=== PATIENT | male | born 1985 | race African-American/Black ===

== ENCOUNTER 2020-05-23 23:20 | Inpatient (IN) | payer OTHER, SELFPAY ==
[2020-05-24] VITALS: BP 159/81; PULSE 88; RESP 16; TEMP 36.6; O2SAT 100
--- NOTE | 2020-05-24 | XR_ITS ---
EXAMINATION: XR ABDOMEN KUB CLINICAL INDICATION: Abdominal pain. COMPARISON: None TECHNIQUE: AP view of the abdomen. FINDINGS: There is scattered oral contrast and stool seen throughout the colon without distention. There is no organomegaly. No radiopaque calculi. No gross bony abnormality visualized. XR/XR KUB IMPRESSION: Nonspecific bowel gas pattern. There is oral contrast in the colon likely from recent GI exam.
--- NOTE | 2020-05-24 | ECG_ITS ---
Test Reason : check QT Blood Pressure : / mmHG Vent. Rate : 100 BPM Atrial Rate : 100 BPM P-R Int : 124 ms QRS Dur : 080 ms QT Int : 332 ms P-R-T Axes : 062 065 003 degrees QTc Int : 428 ms Normal sinus rhythm Nonspecific T wave abnormality Abnormal ECG No previous ECGs available Referred By: Carlota Du Electronically Signed By:CUATE LEI
--- NOTE | 2020-05-24 | XR_ITS ---
EXAMINATION: XR ABDOMEN KUB CLINICAL INDICATION: Nausea, vomiting COMPARISON: None TECHNIQUE: AP view of the abdomen. FINDINGS: High density material is seen throughout the colon, question prior contrast administration. No prior studies available for comparison however. There is a nonobstructed abdominal bowel gas pattern with gas seen within the stomach, small bowel, and colon as far distally as the rectum. No abnormal abdominal calcifications. No acute osseous abnormality. There is osseous hypertrophy of the femoral head-neck junctions bilaterally. XR/XR KUB IMPRESSION: Nonobstructive abdominal bowel gas pattern. There is high density material throughout the colon, query prior contrast administration. No prior studies are available for comparison on the PACS system.
[2020-05-24 00:33] VITALS: BMI 35.4
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
[2020-05-24 06:05] VITALS: BP 140/84; PULSE 84; RESP 18; TEMP 36.6; O2SAT 98
[2020-05-24] MEDS: Famotidine 20 MG TABLET PO (08:26)
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
[2020-05-24] MEDS: Metoclopramide HCl 10 MG/2 ML VIAL 5 MG IM ×2 (13:09→21:22)
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
[2020-05-24] MEDS: hydrOXYzine HCL 25 MG TABLET 50 MG PO (14:36)
[2020-05-24 18:00] VITALS: BP 135/82; PULSE 96; TEMP 528.3; TEMP 983
[2020-05-24] MEDS: Promethazine HCL 25 MG TABLET PO (19:30)
[2020-05-24 21:39] VITALS: BP 147/75; PULSE 70
[2020-05-24] MEDS: Melatonin 3 MG TABLET 6 MG PO (21:48)
[2020-05-24] MEDS: LORazepam 2 MG/ML VIAL 1 MG IM (22:06)
[2020-05-24 22:10] LABS: MANUAL DIFF FLAG NO
[2020-05-24 22:13] LABS: Basophils Percent Auto 0.4 % (0-2); Eosinophils Percent Auto 0.4 % (0-4); Hematocrit 40.7 % (42-52); Hemoglobin 12.8 g/dl (14.0-18.0); Imm Gran Abs Auto 0.02 X10*3/uL (0.00-0.03); Imm Gran Pct Auto 0.2 % (0.0-0.4); Lymphocytes Absolute Auto 2.1 X10*3/uL (1.2-4.9); Lymphocytes Percent Auto 22.3 % (20-40); Mean Corpuscular HGB Conc 31.4 g/dl (31.0-36.0); Mean Corpuscular Hemoglobin 28.8 pg (27.0-33.0); Mean Corpuscular Volume 91.5 fL (80-98); Mean Platelet Volume 8.5 fL (9.4-12.4); Monocytes Absolute Auto 0.5 X10*3/uL (0.1-1.2); Monocytes Percent Auto 5.4 % (2-11); Neutrophils Absolute Auto 6.6 X10*3/uL (2.0-8.3); Neutrophils Percent Auto 71.3 % (45-73); Platelet Count 310 X10*3/uL (160-400); Red Blood Count 4.45 X10*6/uL (4.60-5.80); Red Cell Distribution Width 13.3 % (11.0-16.0); White Blood Count 9.2 X10*3/uL (4.8-10.8)
[2020-05-24 22:34] LABS: Alanine Aminotransferase 11 U/L (0-40); Albumin Level 4.3 g/dL (3.5-5.0); Alkaline Phosphatase 47 U/L (39-117); Anion Gap 12 (12-20); Aspartate Amino Transferase 13 U/L (5-37); Bilirubin Total 0.6 mg/dL (0.0-1.0); Blood Urea Nitrogen 8 mg/dL (9-16); Calcium 9.5 mg/dL (8.4-10.2); Carbon Dioxide 29 mmol/L (22-29); Chloride 101 mmol/L (96-108); Creatinine Clr Calc Pharmacy 99.1; Estimated Glomerular Filt Rate > 60; Glucose Random 114 mg/dL (60-115); Potassium 4.2 mmol/l (3.3-5.1); Sodium 138 mmol/L (135-145); Total Protein 7.2 g/dL (6.5-8.0)
[2020-05-25 06:05] VITALS: BP 135/80; PULSE 70; RESP 18; TEMP 36.7; O2SAT 99
[2020-05-25 07:57] LABS: MANUAL DIFF FLAG NO
[2020-05-25 08:13] LABS: Basophils Percent Auto 0.4 % (0-2); Eosinophils Absolute Auto 0.1 X10*3/uL (0.0-0.4); Eosinophils Percent Auto 1.1 % (0-4); Hematocrit 40.1 % (42-52); Hemoglobin 12.9 g/dl (14.0-18.0); Imm Gran Abs Auto 0.03 X10*3/uL (0.00-0.03); Imm Gran Pct Auto 0.4 % (0.0-0.4); Lymphocytes Absolute Auto 2.6 X10*3/uL (1.2-4.9); Lymphocytes Percent Auto 31.5 % (20-40); Mean Corpuscular HGB Conc 32.2 g/dl (31.0-36.0); Mean Corpuscular Hemoglobin 29.5 pg (27.0-33.0); Mean Corpuscular Volume 91.6 fL (80-98); Mean Platelet Volume 8.9 fL (9.4-12.4); Monocytes Absolute Auto 0.5 X10*3/uL (0.1-1.2); Monocytes Percent Auto 6.4 % (2-11); Neutrophils Absolute Auto 5.1 X10*3/uL (2.0-8.3); Neutrophils Percent Auto 60.2 % (45-73); Platelet Count 315 X10*3/uL (160-400); Red Blood Count 4.38 X10*6/uL (4.60-5.80); Red Cell Distribution Width 13.3 % (11.0-16.0); White Blood Count 8.4 X10*3/uL (4.8-10.8)
[2020-05-25 08:31] LABS: Alanine Aminotransferase 11 U/L (0-40); Alkaline Phosphatase 45 U/L (39-117); Anion Gap 11 (12-20); Aspartate Amino Transferase 15 U/L (5-37); Bilirubin Total 0.8 mg/dL (0.0-1.0); Blood Urea Nitrogen 9 mg/dL (9-16); Calcium 9.3 mg/dL (8.4-10.2); Carbon Dioxide 30 mmol/L (22-29); Chloride 103 mmol/L (96-108); Cholesterol 131 mg/dL; Creatinine Clr Calc Pharmacy 93.3; Estimated Glomerular Filt Rate > 60; Glucose Fasting 98 mg/dL (60-99); HDL Cholesterol 32 mg/dL; LDL Cholesterol Calculated 77 mg/dl; Potassium 4.5 mmol/l (3.3-5.1); Sodium 139 mmol/L (135-145); Total Protein 6.8 g/dL (6.5-8.0); Triglycerides 112 mg/dL
[2020-05-25] MEDS: Promethazine HCL 25 MG TABLET PO ×4 (08:45→21:31)
[2020-05-25] MEDS: Sertraline HCL 50 MG TABLET PO (08:45)
[2020-05-25 08:50] LABS: Thyroid Stimulating Hormone 1.53 uIU/mL (0.32-4.0)
[2020-05-25] MEDS: Metoclopramide HCl 10 MG/2 ML VIAL 5 MG IM (09:09)
[2020-05-25] MEDS: Metoclopramide HCl 10 MG/2 ML VIAL IM ×3 (13:16→21:17)
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
[2020-05-25 17:40] VITALS: BP 139/67; PULSE 76; TEMP 36.7
[2020-05-25] MEDS: Melatonin 3 MG TABLET 6 MG PO (21:32)
[2020-05-25 21:35] VITALS: BP 118/87; PULSE 94; TEMP 36.7
[2020-05-26] MEDS: Promethazine HCL 25 MG TABLET PO ×3 (01:27→18:26)
[2020-05-26 03:53] LABS: Estimated Average Glucose 88 mg/dL; Hemoglobin A1c % 4.7 %
[2020-05-26 04:38] LABS: Folate 14.1 ng/mL (> or = 4.0); Vitamin B12 478 pg/mL (200-900)
[2020-05-26 06:15] VITALS: BP 128/68; PULSE 92; RESP 18; TEMP 36.6; O2SAT 98
[2020-05-26] MEDS: Sertraline HCL 50 MG TABLET PO (09:12)
[2020-05-26] MEDS: Metoclopramide HCl 10 MG/2 ML VIAL IM ×3 (13:27→21:42)
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
[2020-05-26 18:00] VITALS: BP 169/95; PULSE 97; TEMP 36.9
[2020-05-26 20:45] VITALS: BP 133/87; PULSE 97; TEMP 36.9
[2020-05-27 06:15] VITALS: BP 151/93; PULSE 95; RESP 18; TEMP 36.7; O2SAT 98
[2020-05-27] MEDS: Sertraline HCL 50 MG TABLET PO (08:55)
[2020-05-27] MEDS: Promethazine HCL 25 MG TABLET PO ×3 (09:10→18:51)
--- NOTE | 2020-05-27 11:00 | PC.NURSE ---
Pt is a smoker but declines NRT.
[2020-05-27] MEDS: hydrOXYzine HCL 25 MG TABLET 50 MG PO ×2 (11:38→18:51)
[2020-05-27] MEDS: Omeprazole 20 MG CAPSULE.DR PO (12:24)
[2020-05-27] MEDS: Metoclopramide HCl 10 MG/2 ML VIAL IM ×2 (15:15→20:11)
--- NOTE | 2020-05-27 16:41 | HO.PSYCHPN ---
Subjective Subjective Date of Service: 05/29/20 Reason For Visit: Major Depressive Disorder Interim History: Pt reports improvement in mood in that he is no longer suicidal or homicidal. He identifies his children as protective factors. He can't explain much as to why he is feeling better. He reports sleeping well. Vomiting has decreased. He reports hx of stomach ulcer. [facility] Review of Systems Review of Systems Yes all other systems are reviewed and are negative Constitutional: Denies chills and Denies fever(s) Cardiovascular: Denies chest pain Respiratory: Denies cough Gastrointestinal: Reports constipation, Denies diarrhea, Reports nausea and Reports vomiting Mental Status Exam Mental Status Exam Narrative: Appearance: appears stated age, disheveled, in distress due to vomiting and abdominal pain Behavior: superficially cooperative Speech: clear, normal rate/rhythm/volume, spontaneous TP: linear TC: no signs of psychosis, feeling slightly more positive about his life Mood: depressed Affect: in pain and discomfort due to pain AH/VH: none Delusions: none Insight/judgment: poor x 2. Memory/cog: alert, oriented x 3. grossly intact to conversational testing Diagnostics Vital Signs (24Hr): Vital Signs - 24 hr 05/26/20 18:00 05/26/20 20:45 05/27/20 06:15 Temperature 98.4 F 98.4 F 98.1 F Pulse Rate 97 97 95 Respiratory Rate 18 Blood Pressure 169/95 H 133/87 151/93 H Pulse Oximetry 98 Body Mass Index 35.4 Labs Results: 05/25/20 07:47 05/25/20 07:46 Labs: Laboratory Results - last 48 hr 05/25/20 05/25/20 07:46 07:46 Estimat Average Glucose 88 Hemoglobin A1c % 4.7 Vitamin B12 478 Folate 14.1 Imaging Radiology Impressions: ITS Impressions KUB X-Ray 05/24/20 00:00 IMPRESSION: Nonobstructive abdominal bowel gas pattern. There is high density material throughout the colon, query prior contrast administration. No prior studies are available for comparison on the PACS system. KUB X-Ray 05/24/20 00:00 IMPRESSION: Nonspecific bowel gas pattern. There is oral contrast in the colon likely from recent GI exam. Medications Medications Current Medications Generic Name Dose Route Start Last Admin Trade Name Freq PRN Reason Stop Dose Admin Al Hydroxide/Mg Hydroxide 30 ml 05/24/20 00:27 Magnesium Hydrox/Alum Hydrox 30 Ml Oral.Susp PO Q6H PRN Heartburn/Nausea Famotidine 20 mg 05/27/20 21:00 Famotidine 20 Mg Tablet PO BID EVY Hydroxyzine HCl 50 mg 05/24/20 00:27 05/27/20 11:38 Hydroxyzine Hcl 25 Mg Tablet PO 50 mg Q6H PRN Administration Anxiety Magnesium Hydroxide 30 ml 05/24/20 00:27 Milk Of Magnesia 30 Ml Oral.Susp PO DAILY PRN Constipation Melatonin 6 mg 05/24/20 21:00 05/26/20 22:15 Melatonin 3 Mg Tablet PO Not Given BEDTIME EVY Metoclopramide HCl 10 mg 05/25/20 12:59 05/27/20 15:15 Metoclopramide Hcl 10 Mg/2 Ml Vial IM 10 mg Q4H PRN Administration Vomiting Omeprazole 20 mg 05/27/20 11:55 05/27/20 12:24 Omeprazole 20 Mg Capsule.Dr PO 20 mg DAILY@0630 EVY Administration Promethazine HCl 25 mg 05/24/20 19:10 05/27/20 14:16 Promethazine Hcl 25 Mg Tablet PO 25 mg Q4H PRN Administration Nausea Sertraline HCl 50 mg 05/25/20 09:00 05/27/20 08:55 Sertraline Hcl 50 Mg Tablet PO 50 mg DAILY EVY Administration Allergies Allergies Allergy/AdvReac Type Severity Reaction Status Date / Time acetaminophen [From Vicodin] Allergy Intermediate Unknown Verified 05/24/20 00:27 hydrocodone [From Vicodin] Allergy Intermediate Unknown Verified 05/24/20 00:27 Assessment & Plan Assessment & Plan (1) Chronic post-traumatic stress disorder (PTSD) after combat: Status: Acute Code(s): F43.12 - Post-traumatic stress disorder, chronic Assessment and Plan: 1. Continue Sertraline 50mg po daily. 2. Melatonin for sleep (2) Cocaine abuse: Status: Acute Code(s): F14.10 - Cocaine abuse, uncomplicated Assessment and Plan: 1. consider aftercare substance use treatment Greater than 50% of the session was spent on counseling and/or coordination of care
[2020-05-27 18:00] VITALS: BP 132/74; PULSE 104; TEMP 36.9
[2020-05-27] MEDS: Melatonin 3 MG TABLET 6 MG PO (20:06)
[2020-05-27] MEDS: Famotidine 20 MG TABLET PO (20:07)
[2020-05-28 06:25] VITALS: BP 114/76; PULSE 98; RESP 18; TEMP 37.1; O2SAT 96
[2020-05-28] MEDS: Sertraline HCL 50 MG TABLET PO (08:51)
[2020-05-28] MEDS: Famotidine 20 MG TABLET PO ×2 (08:51→22:10)
[2020-05-28] MEDS: Omeprazole 20 MG CAPSULE.DR PO (08:51)
[2020-05-28] MEDS: Promethazine HCL 25 MG TABLET PO ×2 (14:20→20:41)
[2020-05-28 18:45] VITALS: BP 138/87; PULSE 108; TEMP 36.7
[2020-05-28] MEDS: Metoclopramide HCl 10 MG/2 ML VIAL IM (19:09)
--- NOTE | 2020-05-28 20:58 | PC.NURSE ---
hospitalist notified of continue gi upset with nausea and vomiting.
[2020-05-28 21:01] VITALS: BP 134/94; PULSE 114; TEMP 36.6
[2020-05-28] MEDS: Melatonin 3 MG TABLET 6 MG PO (22:10)
[2020-05-29] MEDS: Metoclopramide HCl 10 MG/2 ML VIAL IM (00:29)
[2020-05-29] MEDS: Promethazine HCL 25 MG TABLET PO (01:05)
[2020-05-29 06:05] VITALS: BP 116/72; PULSE 110; RESP 16; TEMP 36.3; O2SAT 97
[2020-05-29 07:00] VITALS: BMI 33.7
--- NOTE | 2020-05-29 09:13 | HO.PSYCHPN ---
Subjective Subjective Date of Service: 05/28/20 Reason For Visit: Major Depressive Disorder Subjective Notes: Conditional Voluntary Interim History: Pt did not have episode of vomiting today. He reports less abdominal pain. He reports decreased symptoms of depression but continues to report feeling hopeless. He denies SI/HI. He reports [facility]- since he just completed a 10 month residential program and quickly relapsed, [facility] recommends 30 day program through [facility] in [place]. Medication Compliance: Yes Side effects from medications: No Attending Groups: Yes Review of Systems Review of Systems Yes all other systems are reviewed and are negative Constitutional: Denies chills and Denies fever(s) Cardiovascular: Denies chest pain Respiratory: Denies cough Gastrointestinal: Reports constipation, Denies diarrhea, Reports nausea and Reports vomiting Mental Status Exam Mental Status Exam Narrative: Appearance: appears stated age, disheveled, in distress due to vomiting and abdominal pain Behavior: superficially cooperative Speech: clear, normal rate/rhythm/volume, spontaneous TP: linear TC: no signs of psychosis, feeling slightly more positive about his life Mood: depressed Affect: in pain and discomfort due to pain AH/VH: none Delusions: none Insight/judgment: poor x 2. Memory/cog: alert, oriented x 3. grossly intact to conversational testing Diagnostics Vital Signs (24Hr): Vital Signs - 24 hr 05/28/20 18:45 05/28/20 21:01 05/29/20 06:05 Temperature 98.0 F 97.8 F 97.4 F Pulse Rate 108 H 114 H 110 H Respiratory Rate 16 Blood Pressure 138/87 134/94 H 116/72 Pulse Oximetry 97 Body Mass Index 35.4 Labs Results: 05/25/20 07:47 05/25/20 07:46 Imaging Radiology Impressions: ITS Impressions KUB X-Ray 05/24/20 00:00 IMPRESSION: Nonobstructive abdominal bowel gas pattern. There is high density material throughout the colon, query prior contrast administration. No prior studies are available for comparison on the PACS system. KUB X-Ray 05/24/20 00:00 IMPRESSION: Nonspecific bowel gas pattern. There is oral contrast in the colon likely from recent GI exam. Medications Medications Current Medications Generic Name Dose Route Start Last Admin Trade Name Freq PRN Reason Stop Dose Admin Al Hydroxide/Mg Hydroxide 30 ml 05/24/20 00:27 Magnesium Hydrox/Alum Hydrox 30 Ml Oral.Susp PO Q6H PRN Heartburn/Nausea Famotidine 20 mg 05/27/20 21:00 05/28/20 22:10 Famotidine 20 Mg Tablet PO 20 mg BID EVY Administration Hydroxyzine HCl 50 mg 05/24/20 00:27 05/27/20 18:51 Hydroxyzine Hcl 25 Mg Tablet PO 50 mg Q6H PRN Administration Anxiety Magnesium Hydroxide 30 ml 05/24/20 00:27 Milk Of Magnesia 30 Ml Oral.Susp PO DAILY PRN Constipation Melatonin 6 mg 05/24/20 21:00 05/28/20 22:10 Melatonin 3 Mg Tablet PO 6 mg BEDTIME EVY Administration Metoclopramide HCl 10 mg 05/25/20 12:59 05/29/20 00:29 Metoclopramide Hcl 10 Mg/2 Ml Vial IM 10 mg Q4H PRN Administration Vomiting Omeprazole 20 mg 05/27/20 11:55 05/28/20 08:51 Omeprazole 20 Mg Capsule.Dr PO 20 mg DAILY@0630 EVY Administration Promethazine HCl 25 mg 05/24/20 19:10 05/29/20 01:05 Promethazine Hcl 25 Mg Tablet PO 25 mg Q4H PRN Administration Nausea Sertraline HCl 75 mg 05/29/20 09:00 Sertraline Hcl 25 Mg Tablet PO DAILY EVY Allergies Allergies Allergy/AdvReac Type Severity Reaction Status Date / Time acetaminophen [From Vicodin] Allergy Intermediate Unknown Verified 05/24/20 00:27 hydrocodone [From Vicodin] Allergy Intermediate Unknown Verified 05/24/20 00:27 Assessment & Plan Assessment & Plan (1) Chronic post-traumatic stress disorder (PTSD) after combat: Status: Acute Code(s): F43.12 - Post-traumatic stress disorder, chronic Assessment and Plan: 1. Increase Sertraline 75mg po daily. 2. Melatonin for sleep (2) Cocaine abuse: Status: Acute Code(s): F14.10 - Cocaine abuse, uncomplicated Assessment and Plan: 1. consider aftercare substance use treatment Greater than 50% of the session was spent on counseling and/or coordination of care
[2020-05-29] MEDS: Omeprazole 20 MG CAPSULE.DR PO (09:17)
[2020-05-29] MEDS: Famotidine 20 MG TABLET PO ×2 (09:17→20:13)
[2020-05-29] MEDS: Sertraline HCL 25 MG TABLET 75 MG PO (09:17)
--- NOTE | 2020-05-29 10:39 | PM.IMCN ---
History of Present Illness Data of Consult Service Date: 05/29/20 Requesting physician: Jian Mack Primary Care Provider: Unknown Physician HPI Reason for consult: Nausea and vomiting A 34 years old male with PMH of substance abuse, cocaine abuse, mild 1 usage, suicidal ideation depression who presented to the hospital for psych floor admission. Consult for Reported episodes of nausea and vomiting. A CT scan was done on May 23 was negative for any acute findings. He continued to have infrequent episodes of vomiting after meals with repeated x-ray for abdomen negative for any acute findings. He reports nausea and vomiting after eating with no reported abdominal pain, fever or chills. He feels bloated and his symptoms are more related to eating dairy. Review of Systems Review of Systems: No fever, chills or weakness No chest pain, palpitation No shortness of breath or coughing No abdominal pain but reporting but reporting nausea or vomiting No urinary symptoms No any rash or wounds PMFSH Medical History ADD (attention deficit disorder) Chronic post-traumatic stress disorder (PTSD) after combat Depression No known health problems Functional capacity: independent ambulation Social History Household Members: Unknown / Unable to assess Housing: Unknown / Unable to assess Do you presently have visiting nurse or other home services: Yes Unable to assess alcohol history related to: Unknown Alcohol intake: former Smoking Status: Current every day smoker Smoked in Last 30 Days: Yes Currently Displaying Signs/Symptoms of Drug Intoxication Withdrawal: No Advance Directives: No Do you have thoughts of harming others: None Do you have a plan to hurt others: No Plan service: Yes Sexual orientation: Straight/Heterosexual Meds Allergies Allergy/AdvReac Type Severity Reaction Status Date / Time acetaminophen [From Vicodin] Allergy Intermediate Unknown Verified 05/24/20 00:27 hydrocodone [From Vicodin] Allergy Intermediate Unknown Verified 05/24/20 00:27 Home Medications Medication Instructions Recorded Confirmed Type albuterol sulfate [ProAir HFA] 2 puff INHALATION QID PRN 05/24/20 05/24/20 History gabapentin 300 mg PO BID 05/24/20 05/24/20 History melatonin 6 mg PO BEDTIME 05/24/20 05/24/20 History multivitamin 1 tab PO DAILY 05/24/20 05/24/20 History sertraline 100 mg PO DAILY 05/24/20 05/24/20 History clonidine 1 patch TRANSDERMAL QWEEK 05/25/20 05/25/20 History Physical Exam Vital Signs and Narrative: Vital Signs: Last Vital Signs Temp 97.4 F 05/29/20 06:05 Pulse 110 H 05/29/20 06:05 Resp 16 05/29/20 06:05 BP 116/72 05/29/20 06:05 Pulse Ox 97 05/29/20 06:05 Body Mass Index 35.4 Const: Other: Constitutional : Alert, oriented, not in distress Neck : Normal inspection, Supple Cardiovascular : RRR, S1 S2, no lower extremity edema Respiratory : Good bilateral air entry, no crackles, wheezes or rhonchi Gastrointestinal: soft, lax, Normal bowel sounds, Non tenderness or guarding Skin : Warm/Dry, No rash Neurological : Alert & oriented x3, No focal deficit Results Labs CBC and Chem 7: 05/25/20 07:47 05/25/20 07:46 Assessment and Plan (1) Nausea and vomiting: Status: Acute (2) Marijuana abuse: Status: Acute (3) Tachycardia: Status: Acute A 34 years old male with PMH of substance abuse, cocaine abuse, mild 1 usage, suicidal ideation depression who presented to the hospital for psych floor admission. Consult for Reported episodes of nausea and vomiting Nausea and vomiting Could be secondary to medications, cyclic vomiting, gastritis No signs of acute abdomen or infectious process going on continue famotidine Start Reglan 5 mg before meals for the next 2 days Tachycardia Sinus, no signs of dehydration or acute infection The secondary to anxiety and vomiting No intervention needed Thank you for the consult, will continue to monitor the patient with you as needed
[2020-05-29] MEDS: Metoclopramide HCl 5 MG TABLET PO ×3 (11:49→21:54)
--- NOTE | 2020-05-29 13:04 | P.PNPSI_ITS ---
Subjective Subjective Date of Service: 05/29/20 Reason For Visit: Major Depressive Disorder Interim History: Pt reports tolerating po with nausea but taking reglan prior to some meals. He reports sleeping better. He reports decreased symptoms of depression. He reports feeling more hopeful about his future. He denies SI/HI. He reports he understands [facility] than [facility] to group [facility] treatment. Review of Systems Review of Systems No fever, chills or weakness No chest pain, palpitation No shortness of breath or coughing No abdominal pain but reporting but reporting nausea or vomiting No urinary symptoms No any rash or wounds Yes all other systems are reviewed and are negative Constitutional: Denies chills and Denies fever(s) Cardiovascular: Denies chest pain Respiratory: Denies cough Gastrointestinal: Reports constipation, Denies diarrhea, Reports nausea and Reports vomiting Mental Status Exam Mental Status Exam Narrative: Appearance: appears stated age, disheveled, in distress due to vomiting and abdominal pain Behavior: superficially cooperative Speech: clear, normal rate/rhythm/volume, spontaneous TP: linear TC: no signs of psychosis, feeling slightly more positive about his life Mood: depressed Affect: in pain and discomfort due to pain AH/VH: none Delusions: none Insight/judgment: poor x 2. Memory/cog: alert, oriented x 3. grossly intact to conversational testing Diagnostics Vital Signs (24Hr): Vital Signs - 24 hr 05/28/20 18:45 05/28/20 21:01 05/29/20 06:05 Temperature 98.0 F 97.8 F 97.4 F Pulse Rate 108 H 114 H 110 H Respiratory Rate 16 Blood Pressure 138/87 134/94 H 116/72 Pulse Oximetry 97 Body Mass Index 35.4 Labs Results: 05/25/20 07:47 05/29/20 13:57 Imaging Radiology Impressions: ITS Impressions KUB X-Ray 05/24/20 00:00 IMPRESSION: Nonobstructive abdominal bowel gas pattern. There is high density material throughout the colon, query prior contrast administration. No prior studies are available for comparison on the PACS system. KUB X-Ray 05/24/20 00:00 IMPRESSION: Nonspecific bowel gas pattern. There is oral contrast in the colon likely from recent GI exam. Medications Medications Current Medications Generic Name Dose Route Start Last Admin Trade Name Freq PRN Reason Stop Dose Admin Al Hydroxide/Mg Hydroxide 30 ml 05/24/20 00:27 Magnesium Hydrox/Alum Hydrox 30 Ml Oral.Susp PO Q6H PRN Heartburn/Nausea Famotidine 20 mg 05/27/20 21:00 05/29/20 09:17 Famotidine 20 Mg Tablet PO 20 mg BID EVY Administration Hydroxyzine HCl 50 mg 05/24/20 00:27 05/27/20 18:51 Hydroxyzine Hcl 25 Mg Tablet PO 50 mg Q6H PRN Administration Anxiety Magnesium Hydroxide 30 ml 05/24/20 00:27 Milk Of Magnesia 30 Ml Oral.Susp PO DAILY PRN Constipation Melatonin 6 mg 05/24/20 21:00 05/28/20 22:10 Melatonin 3 Mg Tablet PO 6 mg BEDTIME EVY Administration Metoclopramide HCl 5 mg 05/29/20 11:30 05/29/20 11:49 Metoclopramide Hcl 5 Mg Tablet PO 05/31/20 07:31 5 mg QIDACHS EVY Administration Omeprazole 20 mg 05/27/20 11:55 05/29/20 09:17 Omeprazole 20 Mg Capsule.Dr PO 20 mg DAILY@0630 EVY Administration Promethazine HCl 25 mg 05/24/20 19:10 05/29/20 01:05 Promethazine Hcl 25 Mg Tablet PO 25 mg Q4H PRN Administration Nausea Sertraline HCl 75 mg 05/29/20 09:00 05/29/20 09:17 Sertraline Hcl 25 Mg Tablet PO 75 mg DAILY EVY Administration Allergies Allergies Allergy/AdvReac Type Severity Reaction Status Date / Time acetaminophen [From Vicodin] Allergy Intermediate Unknown Verified 05/24/20 00:27 hydrocodone [From Vicodin] Allergy Intermediate Unknown Verified 05/24/20 00:27 Assessment & Plan Assessment & Plan (1) Nausea and vomiting: Status: Acute Code(s): R11.2 - Nausea with vomiting, unspecified (2) Tachycardia: Status: Acute Code(s): R00.0 - Tachycardia, unspecified Assessment and Plan: A 34 years old male with PMH of substance abuse, cocaine abuse, mild 1 usage, suicidal ideation depression who presented to the hospital for psych floor admission. Consult for Reported episodes of nausea and vomiting Nausea and vomiting Could be secondary to medications, cyclic vomiting, gastritis No signs of acute abdomen or infectious process going on continue famotidine Start Reglan 5 mg before meals for the next 2 days Tachycardia Sinus, no signs of dehydration or acute infection The secondary to anxiety and vomiting No intervention needed Thank you for the consult, will continue to monitor the patient with you as needed (3) Chronic post-traumatic stress disorder (PTSD) after combat: Status: Acute Code(s): F43.12 - Post-traumatic stress disorder, chronic Assessment and Plan: 1. Increase Sertraline 75mg po daily. 2. Melatonin for sleep (4) Cocaine abuse: Status: Acute Code(s): F14.10 - Cocaine abuse, uncomplicated Assessment and Plan: 1. consider aftercare substance use treatment Greater than 50% of the session was spent on counseling and/or coordination of care Patient educated on: diagnosis, medication risk/benefits and therapeutic strategies Informed Consent: understands Reason for contiued inpatient stay Substantial Risk for: harm to self
[2020-05-29 14:34] LABS: Alanine Aminotransferase 12 U/L (0-40); Albumin Level 4.2 g/dL (3.5-5.0); Alkaline Phosphatase 56 U/L (39-117); Anion Gap 12 (12-20); Aspartate Amino Transferase 11 U/L (5-37); Bilirubin Total 0.6 mg/dL (0.0-1.0); Blood Urea Nitrogen 11 mg/dL (9-16); Calcium 9.4 mg/dL (8.4-10.2); Carbon Dioxide 29 mmol/L (22-29); Chloride 103 mmol/L (96-108); Creatinine Clr Calc Pharmacy 90.4; Estimated Glomerular Filt Rate > 60; Glucose Fasting 90 mg/dL (60-99); Potassium 4.2 mmol/l (3.3-5.1); Sodium 140 mmol/L (135-145); Total Protein 7.1 g/dL (6.5-8.0)
[2020-05-29 18:00] VITALS: BP 145/85; PULSE 114; TEMP 36.7
[2020-05-29] MEDS: Melatonin 3 MG TABLET 6 MG PO (21:54)
[2020-05-30 06:25] VITALS: BP 108/69; PULSE 99; RESP 18; TEMP 37.1; O2SAT 96
[2020-05-30] MEDS: Omeprazole 20 MG CAPSULE.DR PO (07:15)
[2020-05-30] MEDS: Famotidine 20 MG TABLET PO ×2 (08:41→21:22)
[2020-05-30] MEDS: Metoclopramide HCl 5 MG TABLET PO ×4 (08:41→21:22)
[2020-05-30] MEDS: Sertraline HCL 25 MG TABLET 75 MG PO (08:41)
--- NOTE | 2020-05-30 14:30 | HO.PSYCHPN ---
Subjective Subjective Date of Service: 05/30/20 Reason For Visit: Major Depressive Disorder Interim History: Pt was in bed for most of the morning. He stated he felt tired and catching up on sleep. He was encouraged to get out of bed and attend groups, which he later did. He reports feeling less depressed, more hopeful about his future. He is looking forward to go to [employer] [facility] in [place]. No episodes of vomiting today. Review of Systems Review of Systems No fever, chills or weakness No chest pain, palpitation No shortness of breath or coughing No abdominal pain but reporting but reporting nausea or vomiting No urinary symptoms No any rash or wounds Yes all other systems are reviewed and are negative Constitutional: Denies chills and Denies fever(s) Cardiovascular: Denies chest pain Respiratory: Denies cough Gastrointestinal: Reports constipation, Denies diarrhea, Reports nausea and Reports vomiting Mental Status Exam Mental Status Exam Narrative: Appearance: appears stated age, disheveled, in distress due to vomiting and abdominal pain Behavior: superficially cooperative Speech: clear, normal rate/rhythm/volume, spontaneous TP: linear TC: no signs of psychosis, feeling slightly more positive about his life Mood: depressed Affect: in pain and discomfort due to pain AH/VH: none Delusions: none Insight/judgment: poor x 2. Memory/cog: alert, oriented x 3. grossly intact to conversational testing Diagnostics Vital Signs (24Hr): Vital Signs - 24 hr 05/29/20 18:00 05/30/20 06:25 Temperature 98.1 F 98.7 F Pulse Rate 114 H 99 Respiratory Rate 18 Blood Pressure 145/85 H 108/69 Pulse Oximetry 96 Body Mass Index 33.7 Labs Results: 05/25/20 07:47 05/29/20 13:57 Labs: Laboratory Results - last 48 hr 05/29/20 13:57 Sodium 140 Potassium 4.2 Chloride 103 Carbon Dioxide 29 Anion Gap 12 BUN 11 Creatinine 1.20 Estim Creat Clear Calc 90.4 Estimated GFR > 60 Fasting Glucose 90 Calcium 9.4 Total Bilirubin 0.6 AST 11 ALT 12 Alkaline Phosphatase 56 D Total Protein 7.1 Albumin 4.2 Imaging Radiology Impressions: ITS Impressions KUB X-Ray 05/24/20 00:00 IMPRESSION: Nonobstructive abdominal bowel gas pattern. There is high density material throughout the colon, query prior contrast administration. No prior studies are available for comparison on the PACS system. KUB X-Ray 05/24/20 00:00 IMPRESSION: Nonspecific bowel gas pattern. There is oral contrast in the colon likely from recent GI exam. Medications Medications Current Medications Generic Name Dose Route Start Last Admin Trade Name Freq PRN Reason Stop Dose Admin Al Hydroxide/Mg Hydroxide 30 ml 05/24/20 00:27 Magnesium Hydrox/Alum Hydrox 30 Ml Oral.Susp PO Q6H PRN Heartburn/Nausea Famotidine 20 mg 05/27/20 21:00 05/30/20 08:41 Famotidine 20 Mg Tablet PO 20 mg BID EVY Administration Hydroxyzine HCl 50 mg 05/24/20 00:27 05/27/20 18:51 Hydroxyzine Hcl 25 Mg Tablet PO 50 mg Q6H PRN Administration Anxiety Magnesium Hydroxide 30 ml 05/24/20 00:27 Milk Of Magnesia 30 Ml Oral.Susp PO DAILY PRN Constipation Melatonin 6 mg 05/24/20 21:00 05/29/20 21:54 Melatonin 3 Mg Tablet PO 6 mg BEDTIME EVY Administration Metoclopramide HCl 5 mg 05/29/20 11:30 05/30/20 12:57 Metoclopramide Hcl 5 Mg Tablet PO 05/31/20 07:31 5 mg QIDACHS EVY Administration Omeprazole 20 mg 05/27/20 11:55 05/30/20 07:15 Omeprazole 20 Mg Capsule. PO 20 mg DAILY@0630 EVY Administration Promethazine HCl 25 mg 05/24/20 19:10 05/29/20 01:05 Promethazine Hcl 25 Mg Tablet PO 25 mg Q4H PRN Administration Nausea Sertraline HCl 75 mg 05/29/20 09:00 05/30/20 08:41 Sertraline Hcl 25 Mg Tablet PO 75 mg DAILY EVY Administration Allergies Allergies Allergy/AdvReac Type Severity Reaction Status Date / Time acetaminophen [From Vicodin] Allergy Intermediate Unknown Verified 05/24/20 00:27 hydrocodone [From Vicodin] Allergy Intermediate Unknown Verified 05/24/20 00:27 Assessment & Plan Assessment & Plan (1) Nausea and vomiting: Status: Acute Code(s): R11.2 - Nausea with vomiting, unspecified (2) Tachycardia: Status: Acute Code(s): R00.0 - Tachycardia, unspecified Assessment and Plan: A 34 years old male with PMH of substance abuse, cocaine abuse, mild 1 usage, suicidal ideation depression who presented to the hospital for psych floor admission. Consult for Reported episodes of nausea and vomiting Nausea and vomiting Could be secondary to medications, cyclic vomiting, gastritis No signs of acute abdomen or infectious process going on continue famotidine Start Reglan 5 mg before meals for the next 2 days Tachycardia Sinus, no signs of dehydration or acute infection The secondary to anxiety and vomiting No intervention needed Thank you for the consult, will continue to monitor the patient with you as needed (3) Chronic post-traumatic stress disorder (PTSD) after combat: Status: Acute Code(s): F43.12 - Post-traumatic stress disorder, chronic Assessment and Plan: 1. Increase Sertraline 75mg po daily. 2. Melatonin for sleep (4) Cocaine abuse: Status: Acute Code(s): F14.10 - Cocaine abuse, uncomplicated Assessment and Plan: 1. consider aftercare substance use treatment Greater than 50% of the session was spent on counseling and/or coordination of care
[2020-05-30 18:00] VITALS: BP 118/93; PULSE 108; TEMP 37.1
[2020-05-30] MEDS: Melatonin 3 MG TABLET 6 MG PO (21:21)
[2020-05-31] MEDS: Famotidine 20 MG TABLET PO ×2 (09:01→21:05)
[2020-05-31] MEDS: Sertraline HCL 25 MG TABLET 75 MG PO (09:01)
[2020-05-31] MEDS: Omeprazole 20 MG CAPSULE.DR PO (09:01)
[2020-05-31] MEDS: Metoclopramide HCl 5 MG TABLET PO (09:02)
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
[2020-05-31 10:08] VITALS: BP 134/90; PULSE 104; RESP 18; TEMP 36.4; O2SAT 98
[2020-05-31 18:00] VITALS: BP 135/97; PULSE 113; TEMP 36.9
[2020-05-31] MEDS: Melatonin 3 MG TABLET 6 MG PO (21:04)
[2020-05-31] MEDS: hydrOXYzine HCL 25 MG TABLET 50 MG PO (21:58)
[2020-06-01 06:00] VITALS: BP 111/61; PULSE 83; TEMP 36.1
[2020-06-01] MEDS: Omeprazole 20 MG CAPSULE.DR PO (08:42)
[2020-06-01] MEDS: Famotidine 20 MG TABLET PO (08:42)
[2020-06-01] MEDS: Sertraline HCL 25 MG TABLET 75 MG PO (08:42)
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
== END 2020-06-01 16:00 | disposition home or self-care (01) | DRG 882 ==
PROVIDERS: Internal Medicine; Social Worker; Admitting Provider Psychiatry & Neurology Psychiatry; Visit Provider Psychiatry & Neurology Psychiatry
DX: F43.12 Post-traumatic stress disorder, chronic (principal); R45.851 Suicidal ideations; F32.9 Major depressive disorder, single episode, unspecified; R00.0 Tachycardia, unspecified; F14.10 Cocaine abuse, uncomplicated; Z88.5 Allergy status to narcotic agent; Z88.6 Allergy status to analgesic agent; Z79.899 Other long term (current) drug therapy
CPT/HCPCS: 36415; 74018; 80053; 80061; 82607; 82746; 83036; 84443; 85025; 93005; 99222; 99232; J2060; J2765

== ENCOUNTER 2021-08-27 04:12 | Emergency (ER) | payer OTHER, SELFPAY ==
[2021-08-27 04:18] VITALS: BP 109/64; PULSE 89; RESP 16; TEMP 36.4; O2SAT 96; BMI 31.9
[2021-08-27 04:47] LABS: Appearance Urine CLEAR; Color Urine YELLOW; Glucose Urine UA NEG (NEG); Leukocyte Esterase Urine NEG (NEG); Nitrite Urine NEG (NEG); Specific Gravity - Urine 1.015 (1.005-1.025); Urine Blood NEG (NEG); Urine Ketones 5 MG/DL (NEG); Urine Protein NEG (NEG-TRACE)
[2021-08-27 04:57] LABS: COVID-19 Test Negative (Negative)
[2021-08-27 04:59] LABS: Ethanol < 10 mg/dL
[2021-08-27] MEDS: Cyclobenzaprine HCl 10 MG TABLET PO (05:01)
[2021-08-27 05:02] LABS: Acetaminophen LAB < 1 mcg/mL (<30); Anion Gap 12 (12-20); Blood Urea Nitrogen 12 mg/dL (9-16); Calcium 10.1 mg/dL (8.4-10.2); Carbon Dioxide 28 mmol/L (22-29); Chloride 100 mmol/L (96-108); Creatinine Clr Calc Pharmacy 97.7; Estimated Glomerular Filt Rate > 60; Glucose Random 82 mg/dL (60-115); Potassium 4.2 mmol/L (3.3-5.1); Salicylate < 5.0 mg/dL (15-30); Sodium 136 mmol/L (135-145)
[2021-08-27] MEDS: NaPROXEN 500 MG TABLET PO (05:02)
[2021-08-27 05:03] LABS: Amphetamine Screen Urine Not Detected (Not Detect); Barbiturates, Urine Not Detected (Not Detect); Benzodiazepines Screen Urine Not Detected (Not Detect); Cannabinoid Screen Urine Not Detected (Not Detect); Cocaine Screen Urine POSITIVE (Not Detect); Fentanyl, urine Not Detected (Not Detect); Opiate Screen Urine Not Detected (Not Detect); Phencyclidine Screen Urine Not Detected (Not Detect)
[2021-08-27 05:11] LABS: MANUAL DIFF FLAG NO
[2021-08-27 05:12] LABS: Basophils Percent Auto 0.2 % (0-2); Eosinophils Absolute Auto 0.1 X10*3/uL (0.0-0.4); Eosinophils Percent Auto 0.9 % (0-4); Hematocrit 41.2 % (42.0-52.0); Hemoglobin 13.7 g/dl (14.0-18.0); Imm Gran Abs Auto 0.03 X10*3/uL (0.00-0.03); Imm Gran Pct Auto 0.3 % (0.0-0.4); Lymphocytes Percent Auto 27.6 % (20-40); Mean Corpuscular HGB Conc 33.3 g/dl (31.0-36.0); Mean Corpuscular Hemoglobin 30.7 pg (27.0-33.0); Mean Corpuscular Volume 92.4 fL (80.0-98.0); Mean Platelet Volume 8.7 fL (9.4-12.4); Monocytes Absolute Auto 0.8 X10*3/uL (0.1-1.2); Platelet Count 208 X10*3/uL (160-400); Red Blood Count 4.46 X10*6/uL (4.60-5.80); Red Cell Distribution Width 12.5 % (11.0-16.0); White Blood Count 10.9 X10*3/uL (4.8-10.8)
--- NOTE | 2021-08-27 05:53 | PC.NURSE ---
Patient is currently in bed appears sleeping, administered flexril 10 mg tablet and Naproxne 500 gm for lower back pain with positive effect, [facility] referrla completed/confirmed/pending ETA, pharmacy med consult ordered for med rec, [facility], will continue to monitor.
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
--- NOTE | 2021-08-27 09:52 | PC.NURSE ---
pt up to eat breakfast then back to sleep. no behavioral issues reported/observed. will continue to monitor.
--- NOTE | 2021-08-27 10:27 | PC.NURSE ---
Pharmacist in with pt doing med rec. meds will be given once verified.
--- NOTE | 2021-08-27 11:21 | PHA.MEDREC ---
Pharmacy Consult ? Medication Reconciliation Pharmacy has completed the medication reconciliation. No remarkable issues. Randi Mcfarland, JerryD
--- NOTE | 2021-08-27 12:58 | ECG_ITS ---
Test Reason : med clearance Blood Pressure : / mmHG Vent. Rate : 075 BPM Atrial Rate : 075 BPM P-R Int : 164 ms QRS Dur : 094 ms QT Int : 342 ms P-R-T Axes : 061 072 -12 degrees QTc Int : 381 ms Normal sinus rhythm Minimal voltage criteria for LVH, may be normal variant ( Sokolow-Young ) Nonspecific T wave abnormality Abnormal ECG When compared with ECG of 24-MAY-2020 22:43, QT has shortened Referred By: Alejandrina Moran Electronically Signed By:CUATE LEI
[2021-08-27 15:51] LABS: Influenza A PCR NEGATIVE (Negative); Influenza B PCR NEGATIVE (Negative); Resp Syncy Virus RNA Qual PCR NEGATIVE (Negative); SARS COV2 PCR INHOUSE NEGATIVE (Negative)
--- NOTE | 2021-08-27 16:30 | MHC.CARE ---
CARE Team received a call from the [place] [employer] tutor- Celia [phone] who reported they could accommodate Pt or secure placement at [facility]. CARE Team left VM with Celia who reported Pt is interested in [facility]
[2021-08-27 18:15] LABS: Alanine Aminotransferase 136 U/L (0-40); Albumin Level 3.9 g/dL (3.5-5.0); Alkaline Phosphatase 57 U/L (39-117); Aspartate Amino Transferase 85 U/L (5-37); Bilirubin Direct 0.3 mg/dL (0.0-0.5); Bilirubin Total 0.6 mg/dL (0.0-1.0); Total Protein 7.5 g/dL (6.5-8.0)
== END 2021-08-27 21:14 | disposition short-term general hospital (02) ==
PROVIDERS: Physician Assistant Medical; Emergency Provider Internal Medicine
DX: R45.851 Suicidal ideations (principal); F32.A Depression, unspecified; F14.10 Cocaine abuse, uncomplicated; Z20.822 Contact with and (suspected) exposure to COVID-19
CPT/HCPCS: 0241U; 36415; 80048; 80076; 80143; 80179; 80307; 81003; 82077; 85025; 87635; 93005; 99285; U0003; U0005